=== PATIENT | female | born 1940 | race Caucasian/White ===

== ENCOUNTER → 2024-05-15 14:36 | Outpatient (REF) | payer MEDICARE, OTHER, SELFPAY | LOC: HWRAD 14:36 | PROVIDERS: ATTENDING PHYSICIAN Physician Assistant | DX: M25.512 Pain in left shoulder (principal) | CPT/HCPCS: 73030 ==

== ENCOUNTER → 2024-09-21 08:42 | Outpatient (REF) | payer MEDICARE, OTHER, SELFPAY | LOC: RAD 08:42 | PROVIDERS: ATTENDING PHYSICIAN Nurse Practitioner Family; FAMILY PHYSICIAN Physician Assistant | DX: E83.52 Hypercalcemia (principal); E84.9 Cystic fibrosis, unspecified | CPT/HCPCS: 78071; A9500 ==

== ENCOUNTER → 2024-09-23 13:49 | Outpatient (REF) | payer MEDICARE, OTHER, SELFPAY | LOC: RAD 13:49 | PROVIDERS: ATTENDING PHYSICIAN Nurse Practitioner Family; FAMILY PHYSICIAN Physician Assistant | DX: E83.52 Hypercalcemia (principal); E34.9 Endocrine disorder, unspecified | CPT/HCPCS: 76536 ==

== ENCOUNTER → 2024-12-21 12:03 | Outpatient (REF) | payer MEDICARE, OTHER, SELFPAY | LOC: HWRAD 12:03 | PROVIDERS: ATTENDING PHYSICIAN Physician Assistant | DX: R05.1 Acute cough (principal); R06.2 Wheezing | CPT/HCPCS: 71046 ==

== ENCOUNTER 2025-01-05 06:02 | Day surgery (SDC) | payer MEDICARE, OTHER, SELFPAY ==
[2024-12-31 13:42] VITALS: BMI 25.9
--- NOTE | 2024-12-31 17:28 | PTCARENOTE ---
Abn ECG, Dr. Moreau notified, OK if stable, no new interventions requested.
[2025-01-05] VITALS (10 sets, daily range): BP systolic 98–142; BP diastolic 57–84; BMI 25.9
[2025-01-05] MEDS: TYLENOL 1000 MG PO (06:47)
[2025-01-05] MEDS: NEURONTIN 300 MG PO (06:47)
[2025-01-05] MEDS: HEPARIN 5000 UNITS SC (06:48)
[2025-01-05] MEDS: EMEND 40 MG PO (06:49)
[2025-01-05] MEDS: NORMOSOL-R/PLASMALYTE-A 1000 IV (06:50)
[2025-01-05 08:27] LABS: Turbo PTH 64.2 pg/ml (14.5-75.2)
[2025-01-05 09:00] LABS: Turbo PTH 28.7 pg/ml (14.5-75.2)
[2025-01-05] MEDS: DILAUDID 0.5 MG IV ×2 (09:30→09:40)
--- NOTE | 2025-01-05 09:30 | OR.RPT ---
Operative Report
Operative Report
Date of Operation: January 05, 2025
Preoperative Diagnosis: Hyperparathyroidism - E210
Postoperative Diagnosis: Same
Surgeon: Juma Quinonez M.D.
Operation: Minimally Invasive Right Inferior Parathyroidectomy - 89473
Anesthesia: GET
Estimated Blood Loss: 15 cc
Drains: None
Specimen: Right Inferior neck nodule, rule out parathyroid adenoma
Complications: None
Procedure:
The patient was taken to the operating room and placed in the usual supine position. After adequate general endotracheal anesthesia was established, the patient's neck was extended, prepped, and draped in the typical sterile fashion. A 4 cm
transcervical incision was made two fingerbreadths above the sternal notch. The skin incision was made with the #15 blade, and this was taken through the skin into the subcutaneous tissue. The underlying platysma muscle was divided, and subplatysmal
flaps were created superiorly to the thyroid cartilage and inferiorly to the sternal notch. Strap muscles were identified and at the midline.
Attention was turned to the patient's right side of the neck. The right thyroid lobe was mobilized medially. During this process, the right recurrent laryngeal nerve was identified and preserved throughout the surgery. The right lower neck nodule
was identified and noted to be enlarged, excised, and sent to the pathology department, which showed a hypercellular parathyroid gland. The intraoperative PTH levels decreased from 67 pg/ml to 29 pg/ml.
After obtaining adequate hemostasis, the strap muscles were reapproximated with #3-0 Vicryl in a running fashion. The platysma muscle was reapproximated with #3-0 Vicryl in an interrupted fashion, and the skin was approximated with #4-0 Monocryl in
a running subcuticular fashion. The Steri-Strips and sterile dressings were placed. The patient tolerated the procedure well. The final instrument, needle, and sponge counts were correct. The patient was extubated and transferred to the PACU.
== END 2025-01-05 11:40 | disposition home or self-care (01) ==
LOC: SDS 06:02
PROVIDERS: ATTENDING PHYSICIAN Surgery
DX: E21.0 Primary hyperparathyroidism (principal); D36.9 Benign neoplasm, unspecified site
CPT/HCPCS: 60500; 83970; 88305; 88331

== ENCOUNTER 2025-02-20 17:33 | Inpatient (IN) | payer MEDICARE, OTHER, SELFPAY ==
[2025-02-20 13:50] VITALS: BP 158/89
--- NOTE | 2025-02-20 16:09 | ED.GENMED ---
History of Present Illness
General
Chief Complaint: Musculo-Skeletal Complaint
Time Seen by Provider: 02/20/25 14:45
History of Present Illness
History of Present Illness:
Irasema is an 84-year-old female with past medical history of hypertension and hypothyroidism who presents after a mechanical trip and fall on the sidewalk this afternoon. Denies head strike or loss of consciousness. No syncope. Reports right
shoulder pain and right hip pain. Was able to ambulate with assistance. Denies any nausea, vomiting, headache, cervical spine pain, changes in vision. Range of motion intact but limited due to pain.
Phy Exam
General Physical Exam
General Presentation: well appearing and no apparent distress
General Skin: warm and dry
General Habitus: normal
General Mental: alert
General Hydration: appears well hydrated
ENT Exam
ENT Exam: EOMI, pharynx normal, neck supple and normocephalic
Eye Exam
Eye Exam: PERRL, cornea clear and conjunctiva normal
Cardiovascular Exam
Cardiovascular Exam: regular rate/rhythm, no edema, no murmur and normal peripheral pulses
Pulmonary Exam
Pulmonary Exam: lungs clear, no respiratory distress, no rales, no crackles, no rhonchi, no stridor, no wheezing and no cough
Gastrointestinal Exam
Gastrointestinal Exam: normal bowel sounds, non tender, soft, no organomegaly, no pulsatile mass and non distended
Neurological Exam
Neurological Exam: alert, oriented x3, no motor deficits and speech normal
Musculoskeletal Exam
Musculoskeletal Exam: full ROM, no edema and other (Right shoulder pain to palpation and right hip pain to palpation)
Skin Exam
Skin Exam: normal color, warm/dry, no rash and no petechia
Psychiatric Exam
Psychiatric Exam: normal mood/affect
Course
Orders/Labs/Results
Orders:
Orders
02/20/25 15:05
CR Humerus - Right Min 2 View* Urgent
Comment:
Reason For Exam: pain after fall
CR Shoulder - Right Min 2 View Stat
Comment:
Reason For Exam: pain after fall
Hip, Right 2-3 Views [CR Hip - RT w/wo Pel 2-3 Vw*] Urgent
Comment:
Reason For Exam: pain after fall
Include a pelvis x-ray?: Yes
02/20/25 16:56
CT Pelvis W/o Iv Contrast Urgent
Comment:
Reason For Exam: eval femoral neck fracture
02/20/25 17:00
Morphine Sulfate 4 mg IV NOW STA
02/20/25 17:16
BMP [Basic Metabolic Panel] Urgent
CBC/With Diff [Complete Blood Count/With Diff] Urgent
02/20/25 17:17
Admit/Transfer Patient As Directed
Co-Sign Provider:
Level of Care: Inpatient admission
Assign to:: Medical/Surgical
Physician / Group: Susanne Irizarry
Diagnosis: Right Hip Fracture
Reason for Hospitalization: Right Hip Fracture
Expected length of stay greater than two midnights?: Yes
ELOS- Estimated Length of Stay in days: 3
I certify the patient meets the requirements for IP care: Yes
PRN Pain Medication Management As Directed
May give lesser potent ordered pain med per pt: Yes
preference::
Protocol:: Medication orders for pain may be administered in a
manner that supports deferring to patient preference
when the pt is:
- Requesting an ordered lesser potent pain medication.
Least to most potent pain medications are defined
as: acetaminophen < NSAID < tramadol < opioids
(morphine, oxycodone, hydromorphone).
- Requesting a lesser dose of the same medication IF
ORDERED.
- Requesting a less intrusive route of administration
if both routes are prescribed by the provider (PO <
IV).
02/20/25 17:18
Code Status As Directed
Resuscitation Status: Full Code
Abnormal Lab Results
02/20/25
17:16
WBC 4.6 L 10^3/uL
(4.8-10.8)
MCH 31.3 H pg
(27.0-31.0)
MPV 11.0 H fL
(7.4-10.4)
Monocytes % 13.0 H %
(1.7-9.3)
Chloride 108 H mmol/L
(98-107)
02/20/25 17:16
02/20/25 17:16
Vital Signs
Initial and Last Documented VS:
Initial Vital Signs
Temp Pulse Resp BP Pulse Ox
36.9 C 75 16 158/89 98
02/20/25 13:50 02/20/25 13:50 02/20/25 13:50 02/20/25 13:50 02/20/25 13:50
Last Documented Vital Signs
Temp Pulse Resp BP Pulse Ox
36.9 C 83 16 158/89 98
02/20/25 13:50 02/20/25 17:27 02/20/25 13:50 02/20/25 13:50 02/20/25 17:23
MDM/Problems Addressed
Differential Diagnosis Includes:
Right shoulder x-ray completed with no fracture or dislocation identified. Right hip x-ray shows femoral neck fracture. Orthopedist and hospitalist were contacted. Patient will require admission for operative repair. Preoperative lab work
obtained without abnormality. Pain reasonably well-controlled in the emergency room.
*Pulse Oximetry
SaO2: 98
Oxygen Mode of Delivery: Room air
Patient hypoxic: no
*Critical Care Note
Total Time (30-74mins, 75-104mins- exclusive of procedures): Not Applicable
ED Attending Note
-
Portions of this chart may have been created with voice recognition software.� Occasional wrong word or��sound alike� substitutions may have occurred due to the inherent limitations of voice recognition software.
Discharge Plan
Interventions
Interventions:
*Risk Screen - Suicide Last Done: 02/20/25 13:50
*General Assessment Last Done: 02/20/25 17:19
*Neglect/Abuse Screening Last Done: 02/20/25 13:50
*ED COVID-19 Vaccine History Last Done: 02/20/25 17:19
*ED Influenza Vaccine History Last Done: 02/20/25 17:19
[facility] Fall Risk Assessment Tool Last Done: 02/20/25 17:27
ED-Musculoskeletal Assessment Last Done: 02/20/25 17:29
--- NOTE | 2025-02-20 16:54 | HPS.HSE ---
Addendum entered and electronically signed by Susanne Irizarry MD 02/20/25 17:26:
Shoulder X-Ray
IMPRESSION: Postsurgical change of glenohumeral joint. No evidence of complication.
Moderate AC joint osteoarthritis
Right shoulder pain/ bruise
-ice PRN
-standing Tylenol as below
Original Note:
Family Physician
-
Family Physician: Jhonatan Mehta
Chief Complaint
-
fall
History of Present Illness
Ms. Irasema Thomas is a 84 yo woman with hx essential HTN, hypothyroidism, parathyroid adenoma s/p surgery 01/05/25 who presents to the ER post fall with resulting right upper extremity and right hip pain.
Patient states she was walking on the street and tripped over side walk while window shopping. Currently right hip pain bothering her the most. She also has some right shoulder pain with difficult extension.
She had no preceding chest pain, dizziness or palpitations. No history of cardiac disease. No recent reports of chest pain/pressure.
No nausea/vomiting/diarrhea. No abdominal pain. No LE swelling.
Medical History
Past Medical History
Past Medical History: Reports Other ( essential HTN, hypothyroidism,)
Past Surgical History: Reports Other ( parathyroid adenoma s/p surgery 01/05/25 )
Social History
Tobacco: Non-smoker
Alcohol: Occasional
Family History
Family History: Not pertinent
Allergies / Home Medications
Allergies reflects when Allergies were last updated in [facility].
Home Medications with original date entered in [facility]
Allergy/Medication List:
Allergies
Allergy/AdvReac Type Severity Reaction Status Date / Time
Penicillins Allergy Rash Verified 02/20/25 13:50
Home Medications
hydrochlorothiazide 12.5 mg tablet 12.5 mg PO DAILY 12/28/24
levothyroxine 100 mcg tablet 100 mcg PO DAILY 12/28/24
metoprolol tartrate 50 mg tablet 50 mg PO BID 12/28/24
Review of Systems
-
History Source: Patient
A 12 point ROS was completed and negative except as noted: Yes
Physical Exam
Vital Signs
Vital Signs
Temp Pulse Resp BP Pulse Ox
98.5 F 75 16 158/89 98
02/20/25 13:50 02/20/25 13:50 02/20/25 13:50 02/20/25 13:50 02/20/25 16:11
Physical Exam
General: No Apparent Distress
HEENT: PERRLA
Cardiac: S1/S2 and Regular Rhythm
GI: Soft and Non Tender
Musculoskeletal: No Edema
Skin: Warm and Dry; No Rash
Neuro: AO x 3
Psych: Calm
Data Reviewed
-
Diagnostic Radiology: Report Reviewed by me
Lab Data: Labs Reviewed by me
Impression/Plan
-
Ms. Irasema Thomas is a 84 yo woman with hx essential HTN, hypothyroidism, parathyroid adenoma s/p surgery 01/05/25 who presents to the ER post fall with resulting right upper extremity and right hip pain.
Triage VS: T 98.5, P 75, RR 16, BP 158/89
LABS: * awaiting labs
Hip X-Ray with femoral neck fracture
Femoral Neck Fracture
-admit to med/surg
-Orthopedics consulted, plan for surgery tomorrow morning
-[place] perioperative risk = 0.2%; patient is medically optimized for surgery
-NPO after MN
-pain control
-SCD for DVT PPx pre-op
Hypothyroidism - [employer] Synthroid
Essential HTN
-[employer] Metoprolol
-hold HCTZ
Hyperparathyroidism - s/p surgery December 2024
DVT PPx SCD
FULL CODE
[2025-02-20] MEDS: MORPHINE SULFATE 4 MG IV (17:18)
[2025-02-20 17:23] VITALS: BP 124/72; BMI 27.3
[2025-02-20 17:39] LABS: Hematocrit 40.2 % (37.0-47.0); Hemoglobin 13.6 g/dL (12.0-16.0); Mean Corp Hgb Conc. 33.8 g/dL (33.0-37.0); Mean Corpuscular Volume 92.6 fL (81.0-99.0); Nucleated Red Blood Cells % 0 %; Platelet Count 137 10^3/uL (130-400); Red Cell Dist. Width 13.0 % (11.5-14.5)
[2025-02-20 17:46] LABS: Blood Urea Nitrogen 17 mg/dl (7-17); Calcium 8.9 mg/dl (8.4-10.2); Carbon Dioxide 22 mmol/L (22-30); Chloride 108 mmol/L (98-107); Estimated Creatinine Clearance 65 ml/min; Glucose 82 mg/dl (70-99); Potassium 4.0 mmol/L (3.5-5.1); Sodium 137 mmol/L (135-145); eGFR > 60.00
[2025-02-20 18:00] VITALS: BP 126/67
[2025-02-20 18:11] VITALS: BP 126/67
[2025-02-20] MEDS: DILAUDID 0.5 MG IV ×2 (18:29→21:47)
[2025-02-20 20:02] VITALS: BP 137/70
[2025-02-20 20:04] VITALS: BMI 25.1
[2025-02-20] MEDS: LOPRESSOR 50 MG PO (20:32)
--- NOTE | 2025-02-20 20:39 | PTCARENOTE ---
Pt received from ED @1924. Pt AAOx3. VSS. Pt c/o moderate pain to the right hip and shoulder. Pain medication administered. Relief noted. Partner at bedside. Pt oriented to room and plan of care.
[2025-02-20] MEDS: TYLENOL 1000 MG PO (21:18)
[2025-02-20] MEDS: FLUSH (NSS) 1 FLUSH IV (21:47)
[2025-02-20 23:09] VITALS: BP 109/58
[2025-02-21] VITALS (13 sets, daily range): BP systolic 107–128; BP diastolic 58–74; PULSE 74–82; O2SAT 97–98
[2025-02-21] MEDS: ULTRAM 25 MG PO (04:15)
[2025-02-21] MEDS: D5LR 1000 IV (05:31)
[2025-02-21] MEDS: SYNTHROID 100 MCG PO (05:31)
[2025-02-21] MEDS: DILAUDID 0.5 MG IV (05:57)
[2025-02-21 06:42] LABS: Hematocrit 35.8 % (37.0-47.0); Hemoglobin 11.9 g/dL (12.0-16.0); Mean Corp Hgb Conc. 33.2 g/dL (33.0-37.0); Mean Corpuscular Volume 93.5 fL (81.0-99.0); Platelet Count 118 10^3/uL (130-400); Red Cell Dist. Width 13.2 % (11.5-14.5)
[2025-02-21 06:51] LABS: Blood Urea Nitrogen 20 mg/dl (7-17); Calcium 8.3 mg/dl (8.4-10.2); Carbon Dioxide 24 mmol/L (22-30); Chloride 107 mmol/L (98-107); Estimated Creatinine Clearance 60 ml/min; Glucose 91 mg/dl (70-99); Magnesium 2.0 mg/dl (1.6-2.3); Potassium 3.6 mmol/L (3.5-5.1); Sodium 136 mmol/L (135-145); eGFR > 60.00
[2025-02-21] MEDS: TYLENOL PO (08:00)
--- NOTE | 2025-02-21 08:30 | CON.ORTHO ---
Consultation
-
Date/Time Consultation Requested: 02/20/25
Date/Time Consultation Performed: 02/20/25
Requesting Provider: Dr. Irizarry
Performing Provider: Luz Wilhelm PA-C, for Dr. Funmi Swartz
Reason for Consultation: Right hip femoral neck fracture; right shoulder pain
Consultation - Orthopedics
History
HPI: Irasema is an 84-year-old female who presented to [facility] after sustaining a fall while stepping up on the sidewalk while window shopping yesterday afternoon. She experienced immediate pain in her right hip as well as her right
shoulder. 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 She does report
that her right shoulder was replaced with Dr. Garner in 2018. She was unable to ambulate on her right hip, but has been able to continue to move her right shoulder with difficulty reaching across to her chest. She denies any numbness or tingling
of her upper or lower extremities. She reports pain is well-controlled with the pain medication. Our orthopedic specialty was consulted and to discuss definitive management of her right hip fracture going forward.
Medical History
Past Medical History
Past Medical History: Reports Other ( essential HTN, hypothyroidism,)
Past Surgical History: Reports Other ( parathyroid adenoma s/p surgery 01/05/25 )
Social History
Tobacco: Non-smoker
Alcohol: Occasional
Lives at home with spouse
Family History
Family History: Not pertinent
Review of systems
All systems reviewed and negative except for those mentioned in HPI.
Allergies / Home Medications
Allergy/AdvReac Type Severity Reaction Status Date / Time
Penicillins Allergy Rash Verified 02/20/25 20:50
�Medication �Instructions �Recorded
hydrochlorothiazide 12.5 mg tablet 12.5 mg PO DAILY 12/28/24
levothyroxine 100 mcg tablet 100 mcg PO DAILY 12/28/24
metoprolol tartrate 50 mg tablet 50 mg PO BID 12/28/24
Vital Signs / Lab Results
Temp Pulse Resp BP Pulse Ox
98.3 F 59 16 109/58 96
02/20/25 23:09 02/20/25 23:09 02/20/25 23:09 02/20/25 23:09 02/20/25 23:09
02/21/25 06:02
02/21/25 06:02
Physical examination:
General: Well-developed, well-nourished female in no acute distress at rest. Hard of hearing, but otherwise answers questions appropriately.
HEENT: Atraumatic, normocephalic, neck supple.
Lungs: Nonlabored breathing on room air. No audible wheezing.
Heart: Regular rate and rhythm.
Right shoulder: Well-healed surgical incision. Minimal swelling, no ecchymosis. Good range of motion with forward elevation and abduction. Pain with external rotation and reaching across her body. No specific bony tenderness to palpation. Full
range of motion of elbow, wrist, and hand without pain. Neurovascular intact.
Right hip: Tenderness to palpation over the lateral aspect of the hip. Mild swelling. Positive logroll. Range of motion not tested due to known fracture. Calf soft and nontender to palpation. Neurovascular intact distally.
Radiographic studies:
X-rays of the right shoulder show evidence of a anatomic total shoulder arthroplasty. No evidence of fracture or dislocation.
X-rays of the right hip demonstrate a nondisplaced femoral neck fracture.
CT scan of the pelvis confirms an acute right subcapital hip fracture with minimal angulation.
Assessment / Plan
Assessment: Right femoral neck fracture: Right shoulder pain.
Plan: Unfortunately, Ms. Thomas sustained a nondisplaced femoral neck fracture during her fall yesterday. Dr. Swartz was present to evaluate the patient and discussed treatment recommendations as well. The plan will be to proceed with a closed
reduction percutaneous pinning of her right femoral neck fracture. The procedure was explained in detail along with the associated risks, benefits, and recovery process. Surgical consent was signed and placed in patient's chart. Her right hip was
marked as the correct surgical site. IV antibiotics are on-call to the operating room. She has been n.p.o. since midnight last night. Postoperatively, she will work with physical therapy and be partial weightbearing with a walker. Case
management will be consulted to discuss discharge planning based on how she progresses with physical therapy. In regards to her right shoulder, no dislocation or fractures were noted. If her pain persist, she will need to follow-up with Dr. Garner
for further evaluation and discussion of treatment recommendations. Patient and were in agreement with treatment recommendations going forward.
--- NOTE | 2025-02-21 09:15 | W.PN.HOSP.TC ---
Today's Communication/Plan
-
OR planning
Analgesics
NWB pending OR
PT eval planned
ASA after OR
Assessment / Plan
Assessment / Plan
#Right femoral neck fracture
#Mechanical fall
Presented after slipping on the sidewalk while shopping, fell onto right hip
X-ray upon arrival showed nondisplaced right femoral neck fracture
Pelvic CT showed acute right subcapital hip fracture with minimal angulation
Evaluated by orthopedics who is planning for closed reduction with percutaneous pinning
Continue with nonweightbearing status pending surgical intervention
Continue with as needed analgesics and antiemetics
Plan for 4 weeks of full dose aspirin DVT prophylaxis
PT/OT following procedure
#Right shoulder pain
#History of right shoulder arthroplasty
#Moderate AC joint osteoarthritis
Developed pain in her shoulder following her fall; x-ray without evidence of acute fracture or complication
Continue with ice and standing Tylenol
Follow-up OP with orthopedist
#Primary hypertension
Home regimen includes metoprolol to tartrate and HCTZ
No known history of hypertensive systemic disease
Holding HCTZ for now, continue to monitor VS
#Hyperparathyroidism s/p resection
#Hypothyroidism
Question iatrogenic hypothyroidism associated with parathyroidectomy
Home regimen includes levothyroxine 100 mcg daily
No signs or symptoms of abnormal thyroid state
Diet: Regular
DVT: Full dose aspirin after procedure
Code: Full code
Dispo: PT eval following the OR
Anticipated Discharge: 24 - 48 hours
Subjective/Interval History
-
Date of Service: February 21, 2025
Seen and examined at bedside in PACU. No acute events reported overnight. AFVSS this morning.
Morning labs with hemoglobin down to 11.9, WBC 3.5 otherwise stable.
Denies any new complaints today. Pain currently well-controlled.
Objective Data
-
Labs:
Laboratory Results
02/21/25
06:02
WBC 3.5 L
Hgb 11.9 L
Hct 35.8 L
Plt Count 118 L
Sodium 136
Potassium 3.6
Chloride 107
Carbon Dioxide 24
BUN 20 H
Creatinine 0.6
Glucose 91
Calcium 8.3 L
Vital Signs:
Vital Signs
Temp Pulse Resp BP Pulse Ox
97.8 F 61 16 125/74 98
02/21/25 07:50 02/21/25 07:50 02/21/25 07:50 02/21/25 07:50 02/21/25 07:50
Review of Systems
-
History Source: Patient
All other systems: Reviewed and negative
Physical Exam
-
General: Well Developed, Well Nourished and No Apparent Distress
HEENT: Normocephalic, Atraumatic, Moist Mucous Membranes and Anicteric
Respiratory: Clear to Auscultation and Non Labored Respirations; Negative Accessory Resp Muscle Use
Cardiac: Regular Rhythm and S1/S2; Negative Murmur, Rub or Gallop
GI: Soft, Nontender, Nondistended and Normal Bowel Sounds
Musculoskeletal: No Clubbing, No Cyanosis, No Edema and Other (Right hip tenderness, external rotation)
Skin: Warm and Dry; Negative Rash
Neuro: AO x 3, Nonfocal/Grossly Intact and Central Nerve's Intact; Negative Tremors
Psych: Calm
Data Reviewed
-
Labs: Labs Reviewed by me and Discussed with Patient
[2025-02-21] MEDS: SUBLIMAZE 25 MCG IV ×2 (09:56→10:26)
[2025-02-21] MEDS: SUBLIMAZE 50 MCG IV (10:06)
[2025-02-21] MEDS: OFIRMEV 100 IV (10:13)
--- NOTE | 2025-02-21 10:20 | CM ---
CM reviewed chart. Pt currently in OR for R Hip fx.
Met with spouse at bedside. IA completed. Explained role and discussed anticipated dc plan/options.
Pt resides with spouse in a 1story home with 2ste.
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 Owns NO DME.
Discussed pending PT/OT eval/recs and home w/hc w/[facility] vs [facility].
Final dispo pending recs.
[facility], [place]
[phone]
CM/SW will continue to follow to ensure a safe and timely discharge.
[2025-02-21] MEDS: LOPRESSOR PO (10:21)
--- NOTE | 2025-02-21 11:18 | PTCARENOTE ---
Pt returned to 2S in bed. R hip DSG with a moderate amount of drainage noted. RLE with decreased movement, neurovascular assessment otherwise WDL. IVF infusing per order. Nasal cannula maintained. Bed locked and in the lowest position, safety
maintained. Oriented to room and call spivey. Partner at bedside.
[2025-02-21] MEDS: TYLENOL 1000 MG PO ×2 (15:06→22:47)
[2025-02-21] MEDS: ANCEF 5 IV ×2 (17:50→23:22)
[2025-02-21] MEDS: ASPIRIN 325 MG PO (17:50)
[2025-02-21] MEDS: LOPRESSOR 50 MG PO (20:53)
[2025-02-21] MEDS: COLACE 100 MG PO (20:54)
[2025-02-21] MEDS: D5LR IV (22:47)
[2025-02-22] VITALS (8 sets, daily range): BP systolic 100–154; BP diastolic 61–98; PULSE 75; O2SAT 97–98
[2025-02-22] MEDS: SYNTHROID 100 MCG PO (05:17)
[2025-02-22] MEDS: ULTRAM 25 MG PO (06:25)
--- NOTE | 2025-02-22 07:03 | W.PN.HOSP.TC ---
Addendum entered and electronically signed by Aditi Oneal MD 02/22/25 16:06:
I saw and evaluated the patient independently. I reviewed and discussed the resident�s note and agree with findings and plan as documented by Dr. Michael.
GENERAL: well developed, well nourished, female in no apparent distress
HEENT: NC/AT--no O2 requirements
HEART: regular rate and rhythm, +S1, +S2
LUNGS : clear to auscultation bilaterally
ABDOM: soft, nontender, nondistended, + bowel sounds
EXT: no cyanosis, clubbing, or edema
NEUROLOGIC: grossly intact
mechanical fall with Nondisplaced R femoral neck fracture--s/p OR 02/21--apprec ortho--cont tramadol, tylenol and oxycodone- Plan for 4 weeks of full dose aspirin 325mg daily DVT prophylaxis--plan for home in AM
Constipation-- Opioid-induced constipation- Schedule senna & miralax daily- Docusate PRN
R shoulder pain--R shoulder s/p arthroplasty (not this admission). Pain following fall; radiographs 02/21 without fracture. Likely bruising vs. rotator cuff strain/sprain.--pain control--therapy
Hypothyroidism - continue home Synthroid
Essential HTN - continue metoprolol, holding home HCTZ
Hyperparathyroidism - s/p surgery December 2024
DVT Proph -- aspirin, per ortho
Code-- full
Original Note:
Today's Communication/Plan
-
- Discharge likely tmrw with home PT
- Continue pain mgmt
- Schedule laxatives
- Continue 325mg daily aspirin
Assessment / Plan
Assessment / Plan
Pt is an 84yo F with a hx of HTN, hypothyroid, parathyroid adenoma (s/p resection 01/05/25) who presented following R-sided fall, found to have nondisplaced R femoral neck fracture, now POD#1 s/p closed reduction percutaneous pinning.
#Nondisplaced R femoral neck fracture
Closed reduction with percutaneous pinning on 02/21. Post-op pain well controlled
- Ortho following, appreciate recs
- Pain mgmt: tramadol, tylenol tid, oxycodone PRN
- Plan for 4 weeks of full dose aspirin 325mg daily DVT prophylaxis
- PT/OT following procedure
- Postoperatively, she will work with physical therapy and be partial weightbearing with a walker
#Constipation
Today - Pt without BM since OR. Opioid-induced constipation.
- Schedule senna & miralax daily
- Docusate PRN
#R shoulder pain
R shoulder s/p arthroplasty. Pain following fall; radiographs 02/21 without fracture. Likely bruising vs. rotator cuff strain/sprain.
- PT/OT
- Tylenol
- Follow-up OP with orthopedist Dr. Garner
#Chronic
- Hypothyroidism - continue home Synthroid
- Essential HTN - continue metoprolol, holding home HCTZ
- Hyperparathyroidism - s/p surgery December 2024
#Global
- DVT PPx: aspirin, per ortho
- Code: full
- Diet: full
- Dispo: likely tmrw to home with visiting PT
Anticipated Discharge: 24 - 48 hours
Subjective/Interval History
-
Date of Service: February 22, 2025
Pt feeling fine this am, states that pain is well-controlled with current regimen (tramadol, fentanyl citrate). Had some shooting pains in R leg last night but went away quickly. R shoulder still slightly sore. Has been working with PT, going well.
States that she does feel constipated, has not had a BM. Interested in laxative, has had one docusate. Appetite has been good (eating about half of meals), no n/v.
Objective Data
-
Labs:
Laboratory Results
02/22/25
06:19
WBC Pending
Hgb Pending
Hct Pending
Plt Count Pending
Sodium Pending
Potassium Pending
Chloride Pending
Carbon Dioxide Pending
BUN Pending
Creatinine Pending
Glucose Pending
Calcium Pending
Vital Signs:
Vital Signs
Temp Pulse Resp BP Pulse Ox
97.9 F 57 18 121/72 95
02/22/25 03:36 02/22/25 03:36 02/22/25 03:36 02/22/25 03:36 02/22/25 03:36
I&O
02/21/25 02/22/25 02/23/25
06:59 06:59 06:59
Intake Total 1378 / 1378
Balance 1378 / 1378
Review of Systems
-
History Source: Patient
Constitutional: Reports No Symptoms
EENT: Reports No Symptoms Reported
Respiratory: Reports No Symptoms
Cardiac: Reports No Symptoms
Abdomen/GI: Reports Constipated
Breast: Reports No Symptoms
Genitourinary: Reports No Symptoms
Musculoskeletal: Reports Joint Pain and Myalgias
Skin: Reports No Symptoms
Neuro: Reports No Symptoms
Physical Exam
-
General: Well Developed, Well Nourished, No Apparent Distress and Conversant
HEENT: Normocephalic and Atraumatic
Respiratory: Clear to Auscultation and Non Labored Respirations
Cardiac: Regular Rhythm
GI: Nontender and Nondistended
Musculoskeletal: No Edema and Other (R lateral hip with bandage with some blood, no surrounding erythema/drainage/edema/hematoma)
Skin: Warm and Dry
Neuro: Awake and Alert
Psych: Calm
Data Reviewed
-
Total Time Spent with Patient (in minutes): 15
Critical Care Time (in minutes): 30
Diagnostic Radiology: Image personally visualized and interpreted and Report Reviewed by me
Labs: Labs Reviewed by me
[2025-02-22 08:05] LABS: Hematocrit 34.4 % (37.0-47.0); Hemoglobin 11.8 g/dL (12.0-16.0); Mean Corp Hgb Conc. 34.3 g/dL (33.0-37.0); Mean Corpuscular Volume 94.0 fL (81.0-99.0); Platelet Count 107 10^3/uL (130-400); Red Cell Dist. Width 13.0 % (11.5-14.5)
--- NOTE | 2025-02-22 08:10 | W.PN.ORTHO ---
Today's Communication / Plan
-
84F POD 1R hip CRPP with Dr. Swartz
- Partial weightbearing x 4 weeks with assistive devices as indicated
- PT/OT/discharge planning
- Maintain dressing for 7 days then may remove; consider dressing change if saturation continues of bleeding for which check however low concern exam today
- DVT PPx, diet, and pain regimen per primary
Outpatient follow up 4 weeks date of surgery with Dr. Torrez for clinical exam and radiographs. Orthopedic surgery will continue to follow
Assessment
.
Distal Motor Intact: Yes
Dressing:
Clean, dry and intact. Moderate central saturation of bandage
Plan
.
Surgery / Date: R hip CRPP 02/21/25 w/ Dr. Swartz
Activity:
Out of bed.
PT/OT
Subjective
.
.:
Patient resting comfortably.
Vital Signs and Labs
.
Vital Signs and Labs:
Lab Results
02/22/25 06:19
Temp Pulse Resp BP Pulse Ox
97.8 F 68 16 128/68 98
02/22/25 07:10 02/22/25 07:10 02/22/25 07:10 02/22/25 07:10 02/22/25 07:10
[2025-02-22 08:16] LABS: Blood Urea Nitrogen 15 mg/dl (7-17); Calcium 8.4 mg/dl (8.4-10.2); Carbon Dioxide 23 mmol/L (22-30); Chloride 108 mmol/L (98-107); Estimated Creatinine Clearance 60 ml/min; Glucose 106 mg/dl (70-99); Potassium 4.1 mmol/L (3.5-5.1); Sodium 137 mmol/L (135-145); eGFR > 60.00
[2025-02-22] MEDS: TYLENOL 1000 MG PO ×3 (09:30→22:15)
[2025-02-22] MEDS: COLACE 100 MG PO (09:31)
[2025-02-22] MEDS: MIRALAX 17 GRAMS PO (09:31)
[2025-02-22] MEDS: ASPIRIN 325 MG PO (09:31)
[2025-02-22] MEDS: D5LR IV (09:38)
[2025-02-22 10:36] LABS: Absolute Neutrophils -Man Diff 1.8 10^3/uL (1.4-6.5); Normal RBC Morphology Yes; Platelets Checked Yes; Total Cells Counted 100
[2025-02-22] MEDS: LOPRESSOR 50 MG PO ×2 (11:19→20:30)
[2025-02-22] MEDS: ROXICODONE 5 MG PO (11:19)
--- NOTE | 2025-02-22 14:01 | VNURNOTE ---
Chart reviewed. PM [facility] liaison met with patient and sig other at bedside. Explained services: short term, intermittent, skilled. Explained that HH will call prior to visits and visits will be 2-3 x/week. All questions answered. Screened for
homebound criteria. Confirmed demographics and contact #. Sig other has obtained a cane and hip kit. Rolling walker and commode to be provided by PT/OT prior to DC. PM-[facility] contact info provided.
PM-[facility] referral placed in [facility].
--- NOTE | 2025-02-22 16:18 | CM ---
Patient plan for home with [facility] at this time. Patient for DME; walker and commode; physician to provide Scripts. CM will continue to follow for discharge planning needs.
Plan; home with [facility]
--- NOTE | 2025-02-23 05:51 | W.PN.ORTHO ---
Today's Communication / Plan
-
84F POD [address] CR[address] with Dr. Swartz
- Partial weightbearing x 4 weeks with assistive devices as indicated
- PT/OT/discharge planning
- Maintain dressing for 7 days then may remove.
- ASA 325 mg once daily x 4 weeks for DVT prophylaxis
- Diet and pain regimen per primary team
Outpatient follow up 4 weeks date of surgery with Dr. Torrez for clinical exam and radiographs. Orthopedic surgery will sign off at this time. Please reengage with any further questions or concerns.
Assessment
.
Distal Motor Intact: Yes
Dressing:
Clean, dry and intact. Moderate central saturation of bandage; changed on rounds.
Assessment:
POD #2 R Hip CRPP 02/21/[address] Swartz.
Plan
.
Surgery / Date: R hip CRPP 02/21/25 w/ Dr. Swartz
DVT Prophylaxis: Aspirin
Activity:
Out of bed.
PT/OT
Discharge Plan: Home w/ VN
Discharge Information:
Appreciate CM.
Subjective
.
.:
Patient resting comfortably.
Vital Signs and Labs
.
Vital Signs and Labs:
Temp Pulse Resp BP Pulse Ox
98.0 F 61 16 137/71 98
02/22/25 23:45 02/22/25 23:45 02/22/25 23:45 02/22/25 23:45 02/22/25 23:45
[2025-02-23] MEDS: SYNTHROID 100 MCG PO (06:15)
--- NOTE | 2025-02-23 07:03 | W.PN.HOSP.TC ---
Addendum entered and electronically signed by Aditi Oneal MD 02/23/25 15:31:
I saw and evaluated the patient independently. I reviewed and discussed the resident�s note and agree with findings and plan as documented by Dr. Michael.
GENERAL: well developed, well nourished, female in no apparent distress
HEENT: NC/AT--no O2 requirements
HEART: regular rate and rhythm, +S1, +S2
LUNGS : clear to auscultation bilaterally
ABDOM: soft, nontender, nondistended, + bowel sounds
EXT: no cyanosis, clubbing, or edema
NEUROLOGIC: grossly intact
mechanical fall with Nondisplaced R femoral neck fracture--s/p OR 02/21--apprec ortho--cont tramadol, tylenol and oxycodone- Plan for 4 weeks of full dose aspirin 325mg daily DVT prophylaxis--OK for d/c
Constipation-- Opioid-induced constipation- Schedule senna & miralax daily- Docusate PRN
R shoulder pain--R shoulder s/p arthroplasty (not this admission). Pain following fall; radiographs 02/21 without fracture. Likely bruising vs. rotator cuff strain/sprain.--pain control--therapy
Hypothyroidism - continue home Synthroid
Essential HTN - continue metoprolol, holding home HCTZ in perioperative period
Hyperparathyroidism - s/p surgery December 2024
DVT Proph -- aspirin, per ortho
Code status-- full code
OK for D/C
Original Note:
Today's Communication/Plan
-
- Discharge to home today with visiting PT, commode, & walker at home
- Discharge with tylenol > tramadol > oxycodone for pain outpt
- Plan for 4 weeks of full dose aspirin 325mg daily DVT prophylaxis
- Plan for 4 wks partial weightbearing w assistive devices
- Per ortho - maintain dressing for 7 days then may remove; consider dressing change if saturation continues of bleeding
- Plan for outpatient f/u with Dr. Torrez in 4 weeks for clinical exam & radiographs
Assessment / Plan
Assessment / Plan
Pt is an 84yo F with a hx of HTN, hypothyroid, parathyroid adenoma (s/p resection 01/05/25) who presented following R-sided fall, found to have nondisplaced R femoral neck fracture, now POD#2 s/p closed reduction percutaneous pinning.
#Nondisplaced R femoral neck fracture
Closed reduction with percutaneous pinning on 02/21. Post-op pain well controlled.
Today - AVSS, pain well-controlled
- Pain mgmt: tylenol tid, oxycodone, tramadol PRN
- PT/OT following, appreciate recs
- Ortho following, appreciate recs
- Plan for 4 weeks of full dose aspirin 325mg daily DVT prophylaxis
- Plan for 4 wks partial weightbearing w assistive devices
- Per ortho - maintain dressing for 7 days then may remove; consider dressing change if saturation continues of bleeding
- Plan for outpatient f/u with Dr. Torrez in 4 weeks for clinical exam & radiographs
#Constipation
Today - Pt without BM since OR. Opioid-induced constipation.
- Senna+docusate & miralax scheduled daily
- Add fleet enema today
#R shoulder pain
R shoulder s/p arthroplasty. Pain following fall; radiographs 02/21 without fracture. Likely bruising vs. rotator cuff strain/sprain.
- PT/OT
- Tylenol
- Follow-up OP with orthopedist Dr. Garner
#Chronic
- Hypothyroidism - continue home Synthroid
- Essential HTN - continue metoprolol, holding home HCTZ
- Hyperparathyroidism - s/p surgery December 2024
#Global
- DVT PPx: aspirin, per ortho
- Code: full
- Diet: full
- Dispo: likely today to home with visiting PT
Anticipated Discharge: Today
Subjective/Interval History
-
Date of Service: February 23, 2025
Pt feeling well this am. Not in pain at rest, only with movement. Does not like how the oxycodone made her feel, would not like to be dc with that. The tramadol has been effective for her pain. Asking for something between tylenol & oxycodone on
discharge. States that she is still constipated, has not had a BM since OR. Would like to have BM before discharge.
Objective Data
-
Labs:
Laboratory Results
02/23/25
06:00
WBC Pending
Hgb Pending
Hct Pending
Plt Count Pending
Sodium Pending
Potassium Pending
Chloride Pending
Carbon Dioxide Pending
BUN Pending
Creatinine Pending
Glucose Pending
Calcium Pending
Total Bilirubin Pending
AST Pending
ALT Pending
Alkaline Phosphatase Pending
Vital Signs:
Vital Signs
Temp Pulse Resp BP Pulse Ox
98.0 F 61 16 137/71 98
02/22/25 23:45 02/22/25 23:45 02/22/25 23:45 02/22/25 23:45 02/22/25 23:45
I&O
02/22/25 02/23/25 02/24/25
06:59 06:59 06:59
Intake Total 1378 / 1378 480 / 480
Balance 1378 / 1378 480 / 480
Review of Systems
-
History Source: Patient
Constitutional: Reports No Symptoms
EENT: Reports No Symptoms Reported
Respiratory: Reports No Symptoms
Cardiac: Reports No Symptoms
Abdomen/GI: Reports Constipated
Genitourinary: Reports No Symptoms
Musculoskeletal: Reports Joint Pain and Muscle Pain
Skin: Reports No Symptoms
Neuro: Reports No Symptoms
Physical Exam
-
General: Well Developed, Well Nourished, No Apparent Distress and Conversant
HEENT: Normocephalic and Atraumatic
Respiratory: Clear to Auscultation and Non Labored Respirations
Cardiac: Regular Rhythm
GI: Nontender and Nondistended
Musculoskeletal: No Edema and Other (R lateral hip with bandage with some blood, no surrounding erythema/drainage/edema/hematoma)
Skin: Warm and Dry
Neuro: Awake and Alert
Psych: Calm
Data Reviewed
-
Total Time Spent with Patient (in minutes): 10
Critical Care Time (in minutes): 25
Labs: Labs Reviewed by me
[2025-02-23 07:15] VITALS: BP 140/75
[2025-02-23 08:03] LABS: Hematocrit 34.7 % (37.0-47.0); Hemoglobin 11.5 g/dL (12.0-16.0); Mean Corp Hgb Conc. 33.1 g/dL (33.0-37.0); Mean Corpuscular Volume 95.9 fL (81.0-99.0); Nucleated Red Blood Cells % 0 %; Platelet Count 110 10^3/uL (130-400); Red Cell Dist. Width 13.3 % (11.5-14.5)
[2025-02-23 08:10] LABS: ALT (SGPT) 12 U/L (0-35); AST (SGOT) 25 U/L (14-36); Albumin 3.3 g/dl (3.5-5.0); Alkaline Phosphatase 67 U/L (38-126); Blood Urea Nitrogen 16 mg/dl (7-17); Calcium 8.4 mg/dl (8.4-10.2); Carbon Dioxide 25 mmol/L (22-30); Chloride 111 mmol/L (98-107); Estimated Creatinine Clearance 60 ml/min; Glucose 81 mg/dl (70-99); Potassium 4.1 mmol/L (3.5-5.1); Sodium 139 mmol/L (135-145); Total Protein 5.5 g/dl (6.3-8.2); eGFR > 60.00
[2025-02-23] MEDS: TYLENOL 1000 MG PO (09:25)
[2025-02-23] MEDS: ASPIRIN 325 MG PO (09:25)
[2025-02-23] MEDS: MIRALAX 17 GRAMS PO (09:26)
[2025-02-23] MEDS: SENOKOT-S 1 TABLET PO (09:26)
[2025-02-23] MEDS: LOPRESSOR PO (12:55)
[2025-02-23 13:15] VITALS: BP 144/78; BP 155/75; PULSE 65
--- NOTE | 2025-02-23 13:41 | W.DCSUMMARY ---
Addendum entered and electronically signed by Aditi Oneal MD 02/23/25 18:20:
Read, reviewed, and agree. See same day progress note for additional details. Time spent coordinating care, DC planning, review of DC plan of care with resident, transition of care, review of records in EMR, med rec, consults, notes, d/w
consultants, nursing, family, and CM = 31 minutes
Original Note:
Discharge Summary
Discharge Data
Date of Admission: 02/20/25
Date of Discharge: 02/23/25
-
Pending Results: No
Hospital Course
Discharging Physician : Aditi Oneal; Caroline Michael
Disposition : To home with visiting PT
Primary care physician : Dr. Jhonatan Mehta
Principal Discharge diagnosis : nondisplaced R femoral neck fracture; constipation
Chronic Discharge diagnosis : Essential hypertension, hypothyroid, parathyroid adenoma (s/p resection)
Hospital Course :
84yo F with a hx of HTN, hypothyroid, parathyroid adenoma (s/p resection 01/05/25) who presented following R-sided fall, and was found to have nondisplaced R femoral neck fracture. Patient underwent closed reduction with percutaneous pinning on
02/21. Her pain was well-controlled postop and she remained afebrile, without any signs of wound infection. Patient was started on 325 mg daily aspirin, to be continued for 4 weeks from date of surgery. Patient had uncomplicated postop course and
was discharged on 02/23.
Patient also experienced pain in the right lateral shoulder following her fall. Imaging of the shoulder demonstrated no fractures. She may follow-up with outpatient orthopedist for further evaluation for soft tissue injury versus instructions for
PT.
She was seen by physical therapy while admitted and was discharged home with visiting physical therapy at home. Patient experienced constipation while in the hospital given opioid analgesia; was discharged with instructions to take MiraLAX and
Senokot while utilizing pain medications (discharging with tramadol for moderate pain, oxycodone for severe pain). She is also instructed to remain partially weightbearing with assistive devices for those 4 weeks postop and was discharged with a
rollator walker and a bedside commode. She was instructed to follow-up with Dr. Swartz orthopedist in 4 weeks.
Important imaging findings :
Hip XR (02/20):
There is shortening of the right femoral neck with a sclerotic line in the femoral neck suggesting a mildly impacted acute right subcapital hip fracture.
There is mild diffuse joint space narrowing of both hip joints as well as mild acetabular sclerosis consistent with osteoarthritis.
CT pelvis (02/20):
There is an acute right subcapital hip fracture with minimal convex angulation medially and anteriorly. No additional acute fractures are noted.
There is mild diffuse joint space narrowing, and acetabular sclerosis of both hip joints as well as osteophyte formation consistent with osteoarthritis.
The bladder is well distended. There is moderate fecal material in the colon. There is mild diverticulosis.
Humerus & shoulder XR (02/20):
There has been a right shoulder replacement. Alignment appears normal. There is severe joint space narrowing of the AC joint. No acute fractures nor dislocations are noted. Regional soft tissues are unremarkable.
Procedure findings : N/A
Discharge Plan
-
Patient Disposition: Home (Routine Discharge)
Discharge Diagnosis/Procedures: nondisplaced R femoral neck fracture
Diet: No restrictions
Activity: No restrictions
Driving Restrictions: As prior to admission
Bathing Restrictions: None
Referrals:
Funmi Swartz I., [Active, Orthopedics] - in one month
Jhonatan Mehta MD [Family Provider, Internal Medicine]
Additional Discharge Medication Instructions: - Keep the dressing on your surgical wound for 7 days before removing (can change it if there is blood soaking through)
- Through 03/21, you should be partially weightbearing with assistive devices (walker)
- Follow up with Dr. Swartz in ~4 weeks (around 03/21)
- Take 325mg aspirin daily for 4 weeks from the date of your surgery; stop on 03/21
- You may take sennacot and miralax daily to help with constipation while on the pain medications
- We are providing you a prescription for tramadol (you may take 50mg every 6 hours as-needed) for moderate pain. We are including a prescription for oxycodone, which you may take for severe pain (5mg every 4 hours as needed).
Prescriptions:
New
oxycodone 5 mg Tablet
5 mg PO Q4HPRN PRN (Reason: severe pain) Qty: 14 0RF
tramadol 50 mg Tablet
25 mg PO Q6HPRN PRN (Reason: moderate pain) Qty: 14 0RF
polyethylene glycol 3350 17 gram Powder In Packet
17 g PO DAILYPRN PRN (Reason: constipation) 14 Days Qty: 14 0RF
aspirin 325 mg Tablet
325 mg PO DAILY 28 Days Qty: 28 0RF
sennosides-docusate sodium [Senna Plus] 8.6-50 mg Tablet
1 tab PO DAILY Qty: 14 0RF
Continued
levothyroxine 100 mcg Tablet
100 mcg PO DAILY
metoprolol tartrate 50 mg Tablet
50 mg PO BID
hydrochlorothiazide 12.5 mg Tablet
12.5 mg PO DAILY
Discharge Orders:
Discharge Patient (As Directed); Ordered 02/23/25
Ordered By: Caroline Michael
Discharge Date and Time
Print Language: SENEGALESE
--- NOTE | 2025-02-23 14:06 | PTCARENOTE ---
Patient ambulating to BR with assist x1 and walker, maintaining PWB to RLE. Patient has minimal c/o right hip pain 0-2. Patient using call spivey appropriately, spouse at bedside 01/10. Patient eager to go home today.
[2025-02-23 14:10] VITALS: BP 144/78; BP 155/75; PULSE 65
[2025-02-23 14:29] VITALS: BP 135/69
--- NOTE | 2025-02-23 15:32 | CM ---
Patient seen at bedside in 2 south with physicians. Patient given Scripts for DME and PT aware. Patient for transport home and [facility] to follow for discharge planning needs.
Plan; home with [facility] to follow and Walker/commode dispensed by therapy
== END 2025-02-23 14:31 | disposition home health service (06) | DRG 482 ==
LOC: 2 SOUTH 17:33
PROVIDERS: Internal Medicine; Surgery Trauma Surgery; ADMITTING PHYSICIAN Student in an Organized Health Care Education/Training Program; ATTENDING PHYSICIAN Internal Medicine; CONSULT PHYSICIAN Orthopaedic Surgery; EMERGENCY PHYSICIAN Student in an Organized Health Care Education/Training Program; FAMILY PHYSICIAN Internal Medicine
PROC: 0QH634Z Insertion of Internal Fixation Device into Right Upper Femur, Percutaneous Approach (ICD-10-PCS; 2025-02-21)
DX: S72.011A Unspecified intracapsular fracture of right femur, initial encounter for closed fracture (principal); W01.0XXA Fall on same level from slipping, tripping and stumbling without subsequent striking against object, initial encounter; I10 Essential (primary) hypertension; E03.9 Hypothyroidism, unspecified; E21.3 Hyperparathyroidism, unspecified; K59.00 Constipation, unspecified; Z96.611 Presence of right artificial shoulder joint; K57.30 Diverticulosis of large intestine without perforation or abscess without bleeding; K59.03 Drug induced constipation; T40.2X5A Adverse effect of other opioids, initial encounter; Z79.899 Other long term (current) drug therapy
CPT/HCPCS: 72192; 73030; 73060; 73502; 76000; 80048; 80053; 83735; 85025; 85027; 96374; 96375; 97116; 97162; 97166; 97530; 97535; 99285; C1713; C1769